=== PATIENT | male | born 1980 | race Caucasian/White ===

== ENCOUNTER 2017-10-11 15:03 | Emergency (ER) | payer MEDICAID, OTHER ==
[2017-10-11] MEDS: AZITHROMYCIN 250 MG TAB PO (16:57)
[2017-10-11] MEDS: CEFTRIAXONE 250 MG INJ IM (16:57)
[2017-10-11 17:36] LABS: ADD UMIC NO; UR ASCORBIC ACID NEGATIVE (NEGATIVE); UR BILIRUBIN (Dip) NEGATIVE (NEGATIVE); UR BLOOD (Dip) NEGATIVE (NEGATIVE); UR CLARITY CLEAR (CLEAR); UR COLOR YELLOW (YELLOW); UR GLUCOSE (Dip) NEGATIVE (NEGATIVE); UR KETONES (Dip) NEGATIVE (NEGATIVE); UR LEUKOCYTE ESTERASE (Dip) NEGATIVE Leu/ul (NEGATIVE); UR NITRITE (Dip) NEGATIVE (NEGATIVE); UR SPECIFIC GRAVITY (Dip) 1.027 (1.003-1.030); UR TOTAL PROTEIN (Dip) NEGATIVE (NEGATIVE); UR UROBILINOGEN (Dip) NEGATIVE (NEGATIVE)
[2017-10-11] MEDS: KETOROLAC 60 MG INJ IM (17:45)
== END 2017-10-11 17:46 | disposition home or self-care (01) ==
LOC: FTE 15:03
DX: Z20.2 Contact with and (suspected) exposure to infections with a predominantly sexual mode of transmission (principal); A64 Unspecified sexually transmitted disease; R07.89 Other chest pain
CPT/HCPCS: 71046; 81003; 87086; 87591; 96372; 99284-25